=== PATIENT | female | born 1940 | race American Indian/Alaskan Native ===

== ENCOUNTER 2017-10-20 14:08 | Emergency (ER) | payer BC, MEDICARE ==
[2017-10-20 15:31] LABS: Basophils # (Auto) 0.1 K/mm3 (0.0-0.1); Basophils % (Auto) 1.9 % (0.0-1.8); Eosinophils % (Auto) 0.1 % (0.0-4.3); Hematocrit 39.7 % (30.3-42.9); Hemoglobin 12.7 gm/dl (10.1-14.3); Lymphocytes # (Auto) 1.1 K/mm3 (1.2-5.4); Lymphocytes % (Auto) 15.3 % (13.4-35.0); Mean Corpuscular HGB Conc 32 % (30-34); Mean Corpuscular Volume 79 fl (79-97); Monocytes # (Auto) 0.3 K/mm3 (0.0-0.8); Monocytes % (Auto) 4.3 % (0.0-7.3); Platelet Count 293 K/mm3 (140-440); Red Blood Count 5.02 M/mm3 (3.65-5.03); Red Cell Distribution Width 15.5 % (13.2-15.2)
[2017-10-20 15:46] LABS: Alanine Aminotransferase 6 units/L (7-56); Albumin 4.5 g/dL (3.9-5); BUN/Creatinine Ratio 19; Blood Urea Nitrogen 13 mg/dL (7-17); Calcium 9.6 mg/dL (8.4-10.2); Hemolysis Index 72
[2017-10-20 15:50] LABS: Mean Corpuscular Hemoglobin 25 pg (28-32)
[2017-10-21] MEDS ORDERED: SUBLIMAZE IV ONE (03:10)
[2017-10-21] MEDS ORDERED: ZOFRAN IV ONE (03:10)
[2017-10-21] MEDS ORDERED: NACL 0.9% 1000 ML 1,000 ML IV ONE (03:11)
[2017-10-21] MEDS: NACL 0.9% 1000 ML 2,000 ML IV ONE ×2 (04:00→07:50)
--- NOTE | 2017-10-21 04:22 | Emergency Department Report ---
HPI - General Chief Complaint: Abdominal Pain Time Seen by Provider: 10/21/17 03:09 - HPI HPI: The patient is a 77-year-old female with a history of bowel obstruction, who presents for evaluation of abdominal pain. The patient reports 3 days of lower abdominal pain, moderate in severity, pinching and sharp in quality, radiating to the back. She also reports associated nausea without emesis. The patient denies fever, chills, night sweats, chest pain, dyspnea, vomiting, diarrhea, blood in the stool, dark tarry stool, dysuria, hematuria, flank pain, genital discharge, inability to pass flatus. ED Past Medical Hx - Past Medical History Previous Medical History?: Yes Hx Hypertension: Yes Hx HIV: No - Surgical History Past Surgical History?: Yes Additional Surgical History: exploratory, hystorectomy - Social History Smoking Status: Never Smoker Substance Use Type: None - Medications Home Medications: Home Medications Medication Instructions Recorded Confirmed Last Taken Type Amlodipine Besylate/Benazepril 1 cap PO DAILY 04/30/13 04/30/13 04/29/13 History [amLODIPine-Benazepril 10/20 mg] Gabapentin 300 mg PO QHS 04/30/13 04/30/13 04/29/13 History Omeprazole Magnesium [PriLOSEC Otc] 20 mg PO QDAY 04/30/13 04/30/13 04/29/13 History Tramadol HCl [traMADol ER 100 MG] 100 mg PO Q8HRT PRN #30 tbmp.24hr 05/08/13 Unknown Rx ED Review of Systems ROS: Stated complaint: ABD PAIN Other details as noted in HPI Constitutional: denies: fever ENT: denies: throat or neck pain Respiratory: denies: cough, shortness of breath Cardiovascular: denies: chest pain Endocrine: denies unexplained weight loss or gain Gastrointestinal:reports abdominal pain, nausea Genitourinary: denies: dysuria Musculoskeletal: denies: leg swelling Skin: denies: rash Neurological: denies: headache Hematological/Lymphatic: denies: easy bleeding or easy bruising Psych: denies sadness or hopelessness Physical Exam - Physical Exam Vital Signs: Vital Signs 10/20/17 10/21/17 14:51 03:44 Temperature 98.8 F Pulse Rate 116 H Respiratory 16 16 Rate Blood Pressure 133/82 O2 Sat by Pulse 99 Oximetry Physical Exam: General: well-nourished, well-developed, no acute distress Head: Normocephalic, atraumatic Eyes: normal sclera ENT: Mucous membranes are pale and dry Neck: trachea midline, neck supple, No neck stiffness, no cervical adenopathy Respiratory: Breath sounds equal bilaterally, no wheezing, rales, or rhonchi Cardio: S1 and S2 present, no murmurs, rubs, gallops, capillary refill is delayed Abdomen: Normoactive bowel sounds, soft abdomen, left lower quadrant and periumbilical tenderness to palpation present, no rigidity, no guarding or rebound tenderness Chest WALL/Back: No tenderness to palpation of the chest wall, no CVA tenderness with percussion Musc: No pitting edema Skin: No rash Neuro: no facial drooping, normal speech Psych: Normal affect ED Course Vital Signs 10/20/17 10/21/17 14:51 03:44 Temperature 98.8 F Pulse Rate 116 H Respiratory 16 16 Rate Blood Pressure 133/82 O2 Sat by Pulse 99 Oximetry ED Medical Decision Making - Lab Data Result diagrams: 10/20/17 14:58 10/20/17 14:58 - Medical Decision Making The patient was seen and examined by myself. The patient is placed on a ekg monitor and continuous pulse ox. On initial evaluation, the patient was found to be in no distress. Evaluation orders are placed. IV access is established and the patient is given 1 L normal saline fluid bolus and Zofran for nausea, and IV analgesic for pain. Lab results were non-concerning including WBC, hemoglobin, hematocrit, electrolytes, renal function, LFTs, lipase, and urinalysis. CT scan abdomen and pelvis is pending. Care of the patient is transferred to the [facility] morning shift physician Dr. Liao, whom agree system The patient to alternate arrange appropriate disposition. Critical care attestation.: If time is entered above; I have spent that time in minutes in the direct care of this critically ill patient, excluding procedure time. ED Disposition Clinical Impression: Dehydration, Acute abdominal pain in left lower quadrant Disposition: DC-01 TO HOME OR SELFCARE Is pt being admited?: No Does the pt Need Aspirin: No Condition: Undetermined Instructions: Abdominal Pain (ED) Referrals: PHUONG CUTLER MD [Primary Care Provider] - 3-5 Days
[2017-10-21 04:45] LABS: Bilirubin,Urine NEG (Negative); Blood,Urine SM (Negative); Color,Urine Yellow (Yellow); Hyaline Casts,Urine 1 /LPF; Mucus,Urine FEW /HPF; Urobilinogen,Urine < 2.0 mg/dL (<2.0)
--- NOTE | 2017-10-21 06:13 | Cat Scan Report ---
FINAL REPORT EXAM: CT ABDOMEN PELVIS W CON HISTORY: pelvic/lower abdominal pain, hx bowel obstruction TECHNIQUE: Routine axial imaging was obtained of the abdomen and pelvis following the intravenous injection of 100 cc of Omnipaque 300. Delayed imaging was obtained through the kidneys ureters and bladder. Sagittal and coronal reconstructions were reviewed. Correlation is made to the previous study of 04/30/2013. FINDINGS: The lung bases do not show any infiltrates or effusions. Liver, gallbladder, pancreas, spleen, and adrenal glands appear normal. The kidneys enhance normally. The vasculatures enhance normally. The bowel loops are normal in caliber and course. There calcification of the abdominal aorta. The appendix is not seen with certainty. There is no evidence of any inflammatory process in the right lower quadrant. There is no evidence of free fluid or adenopathy. The bladder appears normal. The uterus is not seen. The skeletal structures reveal multilevel disc degeneration in the lumbar spine. IMPRESSION: No acute process in the abdomen and pelvis. Appendix not identified. No evidence of any inflammatory process in the right lower quadrant. Hysterectomy. Multilevel disc degeneration in the lumbar spine.
[2017-10-21 06:53] VITALS: BP 151/91
[2017-10-21] MEDS ORDERED: MACROBID PO ONE (07:16)
== END 2017-10-21 07:51 | disposition home or self-care (01) ==
LOC: ED 14:08
DX: R10.32 Left lower quadrant pain (principal); E86.0 Dehydration; I10 Essential (primary) hypertension
CPT/HCPCS: 36415; 74177; 80053; 81001; 83690; 83880; 85025; 86850; 86900; 86901; 93005; 93010; 96374; 96375; 99285; J2405; J3010; J7030; Q9967